=== PATIENT | female | born 1990 | race Caucasian/White ===

== ENCOUNTER → 2017-12-10 | Emergency (ER) | payer MEDICAID | END | disposition left against medical advice (07) | LOC: ER 18:04 | DX: M54.9 Dorsalgia, unspecified (principal); Z53.21 Procedure and treatment not carried out due to patient leaving prior to being seen by health care provider ==

== ENCOUNTER 2018-01-14 08:26 | Emergency (ER) | payer MEDICAID ==
[~2018-01-14] VITALS: Ht 165.1 cm; Wt 69.6 kg
[2018-01-14 08:50] VITALS: BP 115/71
== END 2018-01-14 11:31 | disposition home or self-care (01) ==
LOC: ER 08:26
DX: S33.5XXD Sprain of ligaments of lumbar spine, subsequent encounter (principal); X58.XXXD Exposure to other specified factors, subsequent encounter
CPT/HCPCS: 81025